=== PATIENT | female | born 1980 | race Caucasian/White ===

== ENCOUNTER 2017-12-20 09:19 | Emergency (ER) | payer BC ==
--- NOTE | 2017-12-20 09:21 | PDOC ---
History of Present Illness - General Chief Complaint: Cold Symptoms Stated Complaint: BODY ACHES, COUGH Time Seen by Provider: 12/20/17 09:21 History Source: Patient Exam Limitations: No Limitations - History of Present Illness Initial Comments: 37 yo F no significant PMH presents with 3-4 day history of fever, cough, body aches. She notes that the fever has not been improving with motrin 400 mg every 4 hours. She took motrin 400 mg and Nyquil (contains 650 mg tylenol) 2 hours ago. +Dry cough. No known sick contacts. She has been tolerating PO liquids and soup. No vomiting. Past History - Past Medical History Allergies/Adverse Reactions: Allergies Allergy/AdvReac Type Severity Reaction Status Date / Time No Known Allergies Allergy Verified 12/20/17 09:20 Home Medications: Ambulatory Orders Albuterol Sulfate Inhaler - [Ventolin HFA Inhaler -] 1 - 2 inh PO QID #1 inhaler 12/20/17 Ibuprofen [Motrin -] 600 mg PO TID PRN #21 tablet 12/20/17 Review of Systems - Review of Systems Able to Perform ROS?: Yes Comments:: GENERAL/CONSTITUTIONAL: +Fever and chills. No weakness. HEAD, EYES, EARS, NOSE AND THROAT: No change in vision. No ear pain or discharge. No sore throat. CARDIOVASCULAR: No chest pain or shortness of breath. RESPIRATORY: +Cough, no wheezing or hemoptysis. GASTROINTESTINAL: No nausea, vomiting, diarrhea or constipation. GENITOURINARY: No dysuria, frequency, or change in urination. MUSCULOSKELETAL: No joint or muscle swelling or pain. No neck or back pain. SKIN: No rash NEUROLOGIC: No headache, vertigo, loss of consciousness, or change in strength/ sensation. ENDOCRINE: No increased thirst. No abnormal weight change. HEMATOLOGIC/LYMPHATIC: No anemia, easy bleeding, or history of blood clots. ALLERGIC/IMMUNOLOGIC: No hives or skin allergy. *Physical Exam - Physical Exam Comments: GENERAL: Awake, alert, and fully oriented, in no acute distress. Nontoxic. HEAD: No signs of trauma EYES: PERRLA, EOMI, sclera anicteric, conjunctiva clear ENT: Auricles normal inspection, hearing grossly normal, nares patent, oropharynx erythematous without exudates. Moist mucosa. TMs with clear effusions B/L. NECK: Normal ROM, supple. +Anterior cervical lymphadenopathy. No JVD or masses LUNGS: Breath sounds equal, clear to auscultation bilaterally. No wheezes, and no crackles HEART: Regular rate and rhythm, normal S1 and S2, no murmurs, rubs or gallops ABDOMEN: Soft, nontender, normoactive bowel sounds. No guarding, no rebound. No masses EXTREMITIES: Normal range of motion, no edema. No clubbing or cyanosis. No cords, erythema, or tenderness NEUROLOGICAL: Cranial nerves II through XII grossly intact. Normal speech, normal gait SKIN: Warm, Dry, normal turgor, no rashes or lesions noted. Medical Decision Making - Medical Decision Making 12/20/17 09:54 Lungs clear on exam, however, patient notes mild SOB. Will give albuterol neb for symptomatic treatment. Will give additional motrin and tylenol in ED. Counseled patient that tamiflu does not help after first 48 hours, and she has had it for 3-4 days at this point. Counseled on expectations for duration of illness. No indication for admission or IV placement at present. Will treat with supportive care. Tamiflu rx for sent to pharmacy, as he is starting to feel ill but does not yet have fever. 12/20/17 11:07 Pt reports improvement in symptoms with neb treatment. CXR reviewed, no focal consolidation. Stable for DC home. *DC/Admit/Observation/Transfer Diagnosis at time of Disposition: Influenza - Discharge Dispostion Disposition: HOME Condition at time of disposition: Stable Admit: No - Prescriptions Prescriptions: Albuterol Sulfate Inhaler - [Ventolin HFA Inhaler -] 1 - 2 inh PO QID #1 inhaler Ibuprofen [Motrin -] 600 mg PO TID PRN #21 tablet PRN Reason: Severe Pain - Referrals - Patient Instructions Printed Discharge Instructions: DI for Influenza -- Adult Additional Instructions: Motrin 600 mg (3 tabs) every 8 hours as needed for fever. Extra strength tylenol 2 tabs by mouth every 6 hours as needed for fever (DO NOT combine with any other cold medicines). Print Language: WELSH - Post Discharge Activity
[2017-12-20 09:24] VITALS: BMI 23.8
[2017-12-20 09:38] LABS: URINE APPEARANCE Clear; URINE BILIRUBIN Negative (NEGATIVE); URINE GLUCOSE (UA) Negative (NEGATIVE); URINE KETONE Negative (NEGATIVE); URINE LEUK ESTERASE Negative (NEGATIVE); URINE NITRITE Negative (NEGATIVE); URINE UROBILINOGEN 0.2 (0.2-1.0)
[2017-12-20 09:39] LABS: URINE BLOOD 3+ (NEGATIVE); URINE COLOR AMBER; URINE PROTEIN 1+ (NEGATIVE)
[2017-12-20 09:41] LABS: HCG,QUALITATIVE URINE NEGATIVE
[2017-12-20] MEDS ORDERED: ACETAMINOPHEN 325 MG TABLET (FP) PO ONE (09:48)
[2017-12-20] MEDS ORDERED: IBUPROFEN 400 MG TABLET (FP) PO ONE ×2 (09:49→09:57)
[2017-12-20] MEDS ORDERED: ALBUTEROL SO4 0.083% IH SOL 2.5 MG/3 ML VIAL.NEB. NEB ONE ×2 (09:50→09:57)
[2017-12-20] MEDS ORDERED: ACETAMINOPHEN 325 MG TABLET (FP) ONE (09:57)
[2017-12-20 10:00] LABS: EPI CELLS MODERATE /HPF
[2017-12-20] MEDS ORDERED: DEXAMETHASONE SOD PHOSPHATE 10 MG/1 ML VIAL IVPUSH ONE (10:13)
[2017-12-20] MEDS ORDERED: DEXAMETHASONE SOD PHOSPHATE 10 MG/1 ML VIAL ONE (10:27)
[2017-12-20 11:02] VITALS: BP 94/57; PULSE 94; TEMP 99.7
[2017-12-20] MEDS ORDERED: METOCLOPRAMIDE HCL 10 MG TABLET (FP) PO ONE ×2 (11:05→11:07)
== END 2017-12-20 11:13 | disposition home or self-care (01) ==
LOC: FER 09:19
PROC: 3E0F7GC Introduction of Other Therapeutic Substance into Respiratory Tract, Via Natural or Artificial Opening (ICD-10-PCS; principal; 2017-12-20)
PROC: 3E033GC Introduction of Other Therapeutic Substance into Peripheral Vein, Percutaneous Approach (ICD-10-PCS; 2017-12-20)
DX: J11.1 Influenza due to unidentified influenza virus with other respiratory manifestations (principal)
CPT/HCPCS: 71046-TC-FY; 81003; 81015; 84703; 99281-25; J1100

== ENCOUNTER 2020-06-19 05:20 | Day surgery (SDC) | payer BC ==
[2020-06-16 15:35] VITALS: BMI 21.9
[2020-06-19] MEDS ORDERED: IBUPROFEN 400 MG TABLET (FP) PO PRN (07:30)
[2020-06-19] MEDS ORDERED: ACETAMINOPHEN 325 MG TABLET (FP) PO PRN (07:30)
--- NOTE | 2020-06-19 07:30 | HP ---
History & Physical Update - History History: No Change - Physical Physical: No Change - Assessment Assessment: No Change - Plan Plan: No Change (No change in HP)
[2020-06-19] MEDS ORDERED: DEXAMETHASONE SOD PHOSPHATE 4 MG/1 ML VIAL ONE (09:45)
[2020-06-19] MEDS ORDERED: PROPOFOL 20 ML ONE ×2 (09:46)
[2020-06-19] MEDS ORDERED: MIDAZOLAM HCL 2 MG/2 ML SINGLE DOSE VIAL ONE (09:46)
[2020-06-19] MEDS ORDERED: oxyCODONE HCL 5 MG TABLET PO PRN (11:24)
[2020-06-19] MEDS ORDERED: ONDANSETRON 4 MG/2 ML VIAL IVPUSH PRN (11:24)
--- NOTE | 2020-06-19 11:46 | OP ---
Operative Note - Note: Operative Date: 06/19/20 Pre-Operative Diagnosis: menorrhagia. submucosal myomas Operation: Hysteroscopic myomectomy. Suction DC Findings: large submucosal myoma Post-Operative Diagnosis: Same as Pre-op Surgeon: Cristina Encinas Anesthesia: General Estimated Blood Loss (mls): 20 Operative Report Dictated: Yes
[2020-06-19] MEDS ORDERED: oxyCODONE HCL 5 MG TABLET ONE (13:13)
[2020-06-19 15:26] VITALS: BP 102/68; PULSE 73; TEMP 98
--- NOTE | 2020-06-20 14:50 | PATH ---
Surgical Pathology Report Patient Name: DEANNA HYMAN Med. Rec. #: [id number] /Age/Gender: 1980 (Age: 39) / F Account: [id number] Location: [facility] SURGICAL Taken: 06/19/2020 Received: 06/19/2020 Reported: 06/20/2020 Physicians: Cristina Encinas M.D. Specimen(s) Received A: SUBMUCOSAL MYOMA B: ENDOMETRIAL CURETTINGS Clinical History Submucosal myoma Final Diagnosis A. SUBMUCOSAL MYOMA, HYSTEROSCOPIC MYOMECTOMY: 1 G, FIBROMUSCULAR TISSUE CONSISTENT WITH SUBMUCOSAL LEIOMYOMA, SECRETORY ENDOMETRIUM, AND BENIGN CERVICAL MUCOSA. B. ENDOMETRIAL CURETTINGS, HYSTEROSCOPIC MYOMECTOMY, DILATION AND CURETTAGE: 2 G, FIBROMUSCULAR TISSUE CONSISTENT WITH SUBMUCOSAL LEIOMYOMA, SECRETORY ENDOMETRIUM, AND BENIGN CERVICAL MUCOSA. Electronically Signed Dawna Lomeli M.D. Gross Description A. Received in formalin labeled "submucosal myoma," is a 1 g, 2.1 x 2.0 x 0.3 cm aggregate of hendrickson, firm to rubbery tissue fragments. The formalin is filtered and the specimen is entirely submitted in one cassette. B. Received in formalin labeled "endometrial curettings," is a 2 g, 3.7 x 2.5 x 0.4 cm aggregate of hendrickson-red tissue fragments. The formalin is filtered and the specimen is entirely submitted in 2 cassettes. DL/06/19/2020 saudi/06/19/2020
--- NOTE | 2020-06-29 12:35 | OP ---
DATE OF OPERATION: 06/19/2020 PREOPERATIVE DIAGNOSIS: Menorrhagia, submucosal myoma. OPERATION: Hysteroscopic myomectomy, suction dilatation and curettage. POSTOPERATIVE DIAGNOSIS: Large submucosal myoma. SURGEON: Cristina Encinas MD ANESTHESIA: General. ESTIMATED BLOOD LOSS: 20 mL. DESCRIPTION OF PROCEDURE: Patient was taken to the operating room, placed in dorsal lithotomy position, prepped and draped in usual sterile fashion. A timeout was performed in accordance with hospital regulation. Speculum was placed in the vagina. Anterior lip of the cervix was grasped with single-tooth tenaculum. Cervix was then dilated to accommodate the operative hysteroscope. Visualization revealed a large submucosal myoma. Cautery and cutting of the myoma was done, followed by suction D and C. This procedure was repeated about 3 or 4 times until the myoma was completely shaved from the endometrium. Specimen was submitted to pathology. After myoma had been mostly removed, all instruments were removed. Patient tolerated the procedure well. Estimated blood loss again was 20 mL. CRISTINA ENCINAS M.D. [id number]
== END 2020-06-19 15:10 | disposition home or self-care (01) ==
LOC: JASU-SURG 05:20
PROVIDERS: ATTEND Obstetrics & Gynecology
PROC: 0UJD8ZZ Inspection of Uterus and Cervix, Via Natural or Artificial Opening Endoscopic (ICD-10-PCS; 2020-06-19)
PROC: 0UB98ZZ Excision of Uterus, Via Natural or Artificial Opening Endoscopic (ICD-10-PCS; principal; 2020-06-19 09:45)
PROC: 0UDB7ZX Extraction of Endometrium, Via Natural or Artificial Opening, Diagnostic (ICD-10-PCS; 2020-06-19 09:45)
DX: D25.0 Submucous leiomyoma of uterus (principal); N92.0 Excessive and frequent menstruation with regular cycle
CPT/HCPCS: 36415; 84703; 86850; 86900; 86901; 88305-TC; 94760

== ENCOUNTER 2021-11-22 09:55 | Emergency (ER) | payer BC ==
[2021-11-22 10:11] VITALS: BP 134/92; PULSE 107; TEMP 99.9; BMI 22.8
== END 2021-11-22 10:28 | disposition home or self-care (01) ==
LOC: FER 09:55
DX: U07.1 COVID-19 (principal)
CPT/HCPCS: 99283-25

== ENCOUNTER 2022-07-13 16:37 | Emergency (ER) | payer BC ==
[2022-07-13 16:45] VITALS: BP 103/73; PULSE 82; RESP 18; TEMP 98.8; BMI 22.1
[2022-07-13] MEDS ORDERED: FLUCONAZOLE 50 MG TABLET PO ONE (18:02)
[2022-07-13] MEDS ORDERED: FLUCONAZOLE 150 MG TABLET PO ONE (18:03)
== END 2022-07-13 18:14 | disposition home or self-care (01) ==
LOC: JERFT 16:37
DX: L30.4 Erythema intertrigo (principal)
CPT/HCPCS: 99283-25